=== PATIENT | male | born 1970 | race Two or more races ===

== ENCOUNTER 2019-09-03 07:27 | Emergency (ER) | payer SELFPAY ==
[2019-09-03] MEDS ORDERED: LIDOCAINE 2% JELLY 5 ML TUBE TOP ONE (08:33)
[2019-09-03] MEDS ORDERED: HYDROCODONE/ACETAMINOPHEN 5-325 MG TABLET PO ONE (08:38)
--- NOTE | 2019-09-03 08:38 | ER Document Report ---
ED GI Bleed / Rectal Pain - General Chief Complaint: Abscess Stated Complaint: ABSCESS/BUTTOCKS Time Seen by Provider: 09/03/19 08:15 Primary Care Provider: GRACE LOAIZA MD [ACTIVE STAFF] - Follow up in 1 month Mode of Arrival: Ambulatory Information source: Patient Notes: Patient presents complaining of rectal tenderness for the past week with chills. Patient denies any fever at home. Patient denies any history of MRSA or history of any inflammatory bowel disease. Patient is uncertain if he may have hemorrhoids. - HPI Patient complains to provider of: Rectal pain Onset: Last week Timing/Duration: Worse Quality of pain: Sharp Pain Level: 4 Relieved by: Denies Similar symptoms previously: No Recently seen / treated by doctor: No - Related Data Allergies/Adverse Reactions: No Known Allergies Allergy (Unverified 09/03/19 10:28) Past Medical History - General Information source: Patient - Social History Smoking Status: Current Every Day Smoker Chew tobacco use (# tins/day): No Frequency of alcohol use: Social Drug Abuse: Cocaine, Marijuana Occupation: [employer] Lives with: Family Family History: Reviewed & Not Pertinent Patient has homicidal ideation: No - Medical History Medical History: Negative Surgical Hx: Negative Review of Systems - Review of Systems Constitutional: Chills. denies: Fever EENT: No symptoms reported Cardiovascular: No symptoms reported. denies: Chest pain Respiratory: No symptoms reported Gastrointestinal: Other - rectal pain. denies: Vomiting, Rectal bleeding Genitourinary: No symptoms reported Male Genitourinary: No symptoms reported Musculoskeletal: No symptoms reported Skin: No symptoms reported Hematologic/Lymphatic: No symptoms reported Neurological/Psychological: No symptoms reported Physical Exam - Vital signs Vitals: Temp Pulse Resp BP Pulse Ox 98.8 F 83 14 131/84 H 97 09/03/19 07:33 09/03/19 07:33 09/03/19 07:33 09/03/19 07:33 09/03/19 07:33 - General General appearance: Appears well, Alert In distress: None - HEENT Head: Normocephalic, Atraumatic Eyes: Normal Conjunctiva: Normal Nasal: Normal Mouth/Lips: Normal Mucous membranes: Normal Neck: Normal, Supple. No: Lymphadenopathy - Respiratory Respiratory status: No respiratory distress Chest status: Nontender Breath sounds: Normal. No: Rales, Rhonchi, Stridor, Wheezing Chest palpation: Normal - Cardiovascular Rhythm: Regular Heart sounds: S1 appreciated, S2 appreciated Murmur: No - Abdominal Inspection: Normal Tenderness: Nontender - Rectal Tenderness: Yes Hemorrhoids: Other - Exquisite perianal tenderness with area of mild fluctuance externally at the 6 o'clock position Prostate: Normal Notes: RN Esme as standby - Back Back: Normal - Extremities General upper extremity: Normal inspection, Normal strength General lower extremity: Normal inspection, Normal strength - Neurological Neuro grossly intact: Yes Cognition: Normal [place] Coma Scale Eye Opening: Spontaneous [place] Coma Scale Verbal: Oriented Delta Coma Scale Motor: Obeys Commands [place] Coma Scale Total: 15 - Psychological Associated symptoms: Normal affect, Normal mood - Skin Skin Temperature: Warm Skin Moisture: Dry Skin Color: Normal Course - Re-evaluation Re-evalutation: 09/03/19 08:[address] Orellana, Dr. Orellana to bedside for examination, recommends consultation with surgeon for likely drainage procedure. 09/03/19 08:[address] Loaiza who recommends digital rectal exam prior to consultation. 09/03/19 08:[address] Loaiza regarding exam findings, Dr. Loaiza will be down to evaluate patient. 09/03/19 10:48 Incision and drainage procedure performed per Dr. Loaiza. Patient states that he is supposed to follow-up on outpatient basis with the surgeon. - Vital Signs Vital signs: Temp Pulse Resp BP Pulse Ox 98.8 F 72 18 111/57 L 97 09/03/19 07:33 09/03/19 11:13 09/03/19 11:13 09/03/19 11:13 09/03/19 11:13 Discharge - Discharge Clinical Impression: Perianal abscess, Encounter for incision and drainage procedure Condition: Stable Disposition: HOME, SELF-CARE Instructions: Abscess ([facility]), Ciprofloxacin ([facility]), Metronidazole ([facility]) Additional Instructions: Return immediately for any new or worsening symptoms Followup with your primary care provider, call tomorrow to make a followup appointment Follow-up with Dr. Loaiza in the office as planned Take a stool softener [id number] such as Colace as directed Prescriptions: Ciprofloxacin HCl [Cipro 500 mg Tablet] 500 mg PO BID #10 tablet Metronidazole [Flagyl 500 mg Tablet] 500 mg PO BID #10 tablet Hydrocodone/Acetaminophen [[place] 5-325 mg Tablet] 1 tab PO Q6 PRN #8 tablet PRN Reason: Referrals: GRACE LOAIZA MD [ACTIVE STAFF] - Follow up in 1 month
[2019-09-03] MEDS ORDERED: HYDROMORPHONE HCL INJ/PF 2 MG/ML AMPULE IV ONE (09:00)
[2019-09-03] MEDS ORDERED: LIDOCAINE 1% INJ-PF (10 MG/ML) 30 ML SDV INJ ONE (09:02)
[2019-09-03] MEDS ORDERED: LIDOCAINE 1%/EPINEPHRINE INJ 20 ML VIAL INJ ONE (09:06)
[2019-09-03] MEDS ORDERED: CIPROFLOXACIN HCL 500 MG TABLET PO ONE (10:48)
[2019-09-03] MEDS ORDERED: METRONIDAZOLE 500 MG TABLET PO ONE (10:48)
[2019-09-03 11:20] VITALS: BP 111/57
--- NOTE | 2019-09-03 12:04 | PDOC CONSULTATION ---
Consultation Consult Date: 09/03/19 Provider Consulted: SURGICAL SURGICALIST MD Consult reason:: Rectal pain and swelling History of Present Illness History of Present Illness: FANY SIMON JR is a 49 year old male seen in consultation at the request of the emergency department. The patient has a 3 to 4-day history of pain and swelling in the richard-anal/perirectal area. He denies any fevers or chills. He denies constipation, diarrhea, chest pain, shortness of breath, headache, nausea, vomiting, abdominal pain. He denies any history of diabetes. He denies a personal or family history of Crohn's disease. He denies any history of hemorrhoids. He has never had a problem like this in the past. Movement and palpation make his pain worse. Nothing makes it better. His pain is sharp and stabbing. He rates it 8 out of 10. It is constant. Past Medical History Medical History: None Past Surgical History Past Surgical History: Reports: None Social History Smoking Status: Current Every Day Smoker Electronic Cigarette use?: No Frequency of Alcohol Use: Occasional Hx Recreational Drug Use: No Family History Family History: Reviewed & Not Pertinent Parental Family History Reviewed: Yes Children Family History Reviewed: Yes Sibling(s) Family History Reviewed.: Yes Medication/Allergy Home Medications: Ciprofloxacin HCl [Cipro 500 mg Tablet] 500 mg PO BID #10 tablet 09/03/19 Hydrocodone/Acetaminophen [[place] 5-325 mg Tablet] 1 tab PO Q6 PRN #8 tablet 09/03/19 Metronidazole [Flagyl 500 mg Tablet] 500 mg PO BID #10 tablet 09/03/19 Allergies/Adverse Reactions: No Known Allergies Allergy (Unverified 09/03/19 10:28) Review of Systems Constitutional: ABSENT: anorexia, chills, fatigue Eyes: ABSENT: visual disturbances Ears: ABSENT: hearing changes Nose, Mouth, and Throat: ABSENT: mouth pain, sore throat Cardiovascular: ABSENT: chest pain Respiratory: ABSENT: cough Gastrointestinal: PRESENT: other - Rectal pain and swelling. ABSENT: abdominal pain Genitourinary: ABSENT: dysuria Musculoskeletal: ABSENT: back pain Integumentary: ABSENT: pruritus, rash Neurological: ABSENT: confusion, convulsions, dizziness Psychiatric: ABSENT: anxiety, depression Endocrine: ABSENT: cold intolerance, heat intolerance Hematologic/Lymphatic: ABSENT: easy bleeding, easy bruising Physical Exam Vital Signs: Temp Pulse Resp BP Pulse Ox 98.8 F 72 18 111/57 L 97 09/03/19 07:33 09/03/19 11:13 09/03/19 11:13 09/03/19 11:13 09/03/19 11:13 Intake & Output 09/02/19 09/03/19 09/04/19 06:59 06:59 06:59 Weight 94.2 kg General appearance: PRESENT: no acute distress, cooperative Head exam: PRESENT: atraumatic, normocephalic Eye exam: PRESENT: EOMI, PERRLA. ABSENT: scleral icterus Mouth exam: PRESENT: moist, neck supple Neck exam: ABSENT: meningismus, tenderness, thyromegaly, tracheal deviation Respiratory exam: PRESENT: unlabored. ABSENT: tachypnea, wheezes Cardiovascular exam: ABSENT: tachycardia Pulses: PRESENT: normal radial pulses Vascular exam: PRESENT: normal capillary refill. ABSENT: pallor GI/Abdominal exam: PRESENT: soft. ABSENT: distended, firm, guarding, rigid, tenderness Rectal exam: PRESENT: normal rectal tone, other - Fluctuant mass in the 11 o'clock position tracking posterior laterally, consistent with perianal abscess. No internal tenderness or fluctuance. Extremities exam: ABSENT: clubbing Musculoskeletal exam: PRESENT: ambulatory. ABSENT: deformity Neurological exam: PRESENT: alert, awake, oriented to person, oriented to place, oriented to time, oriented to situation, CN II-XII grossly intact. ABSENT: motor sensory deficit Psychiatric exam: ABSENT: agitated, anxious, depressed Focused psych exam: ABSENT: delusional Skin exam: ABSENT: cyanosis, jaundice Assessment & Plan - Diagnosis (1) Perianal abscess Is this a current diagnosis for this admission?: Yes - Plan Summary Plan Summary: This is a 49-year-old male with an abscess in the perianal/perirectal region. I believe it to be a perianal abscess due to his lack of fluctuance and tenderness with rectal examination. He does have a fluctuant area at the 11 o'clock position, tracking posterior laterally. I have recommended incision and drainage today. I will perform this in the emergency department. The patient has agreed to this. Risks/benefits discussed, informed consent obtained, and all questions answered. The patient will require antibiotics and pain medicine to go home with. I have discussed the possibility that this represents a perirectal abscess. This would carry with it a 60% risk of anorectal fistula formation after abscess drainage. The patient has expressed understanding of this. Follow-up with me in 7 to 10 days at [facility]. Disposition per ED physician.
--- NOTE | 2019-09-03 12:07 | Operative Report ---
Nonrecallable Operative Report DATE OF SURGERY: 09/03/19 PREOPERATIVE DIAGNOSIS: Perianal abscess POSTOPERATIVE DIAGNOSIS: Same as above OPERATION: Incision and drainage of perianal abscess SURGEON: GRACE DAILY ANESTHESIA: Local TISSUE REMOVED OR ALTERED: Abscess contents COMPLICATIONS: None apparent ESTIMATED BLOOD LOSS: Minimal PROCEDURE: Drains/implants: 4 x 4 gauze packing. Procedure in detail: After informed consent was obtained from the patient, he was laid in the left lateral decubitus position in the emergency department. The area of the rectum was prepped and draped in a normal sterile fashion. An incision was created over the area of maximal fluctuance, after 1% lidocaine had been infiltrated into the skin. Upon entry into the abscess cavity, a large amount of purulent material was identified. This was expressed. The cavity was irrigated with saline. Packing was then placed using a 4 x 4 gauze. A dressing was fashioned, and the procedure was concluded. All sponge, instrument, and needle counts were correct. Condition: Stable.
== END 2019-09-03 11:20 | disposition home or self-care (01) ==
LOC: ER 07:27
DX: K61.0 Anal abscess (principal); R68.83 Chills (without fever); F17.200 Nicotine dependence, unspecified, uncomplicated
CPT/HCPCS: 99284; 96374; 42700; J3490; J1170